=== PATIENT | female | born 1995 | race Caucasian/White ===

== ENCOUNTER 2022-03-22 09:43 | Emergency (ER) | payer BC ==
[2022-03-22 09:53] VITALS: BP 130/54; PULSE 80; RESP 18; TEMP 98.8; BMI 31.1
[2022-03-22] MEDS ORDERED: ACETAMINOPHEN 500 MG TABLET (FP) PO ONE (10:55)
[2022-03-22] MEDS ORDERED: CYCLOBENZAPRINE HCL 10 MG TABLET (FP) PO ONE (10:55)
[2022-03-22] MEDS ORDERED: CYCLOBENZAPRINE HCL 10 MG TABLET (FP) ONE (11:18)
[2022-03-22] MEDS ORDERED: ACETAMINOPHEN 325 MG TABLET (FP) ONE (11:18)
== END 2022-03-22 12:47 | disposition home or self-care (01) ==
LOC: JER 09:43 → JERFT 09:43
DX: R51.9 Headache, unspecified (principal); R42 Dizziness and giddiness; V49.50XA Passenger injured in collision with unspecified motor vehicles in traffic accident, initial encounter
CPT/HCPCS: 70450-TC; 99284-25